=== PATIENT | female | born 1945 | race Caucasian/White ===

== ENCOUNTER 2018-04-17 17:44 | Inpatient (IN) | payer MEDICARE ==
--- NOTE | 2018-04-17 17:52 | ED ---
Abdominal Pain/Female - HPI Summary HPI Summary: A 72 y/o female brought in by [facility] presents was transferred from [place] to [facility] with a chief complaint of acute appendicitis on 04/17/18. Per EMS her RLQ abd pain started 36 hours [place]UTTER [place]. She also developed a fever of 100.6. She takes Lisinopril for HTN but denies HLD and DM. She takes prednisone for polymyalgia. She reports last eating the night of 04/16/18. She was given 10 mg morphine in the ambulance and reports no current pain, rating her pain as 0/10. - History of Current Complaint Stated Complaint: ABD PAIN FROM AUNDREA Hx Obtained From: Patient, EMS Onset/Duration: Sudden Onset, Lasting Days, Still Present Timing: Constant Severity Initially: Severe Severity Currently: Moderate Pain Intensity: 0 Pain Scale Used: 0-10 Numeric Location: Discrete At: RLQ Radiates: No Character: Sharp Aggravating Factor(s): Nothing Alleviating Factor(s): Nothing Associated Signs and Symptoms: Positive: Fever. Negative: Chest Pain, Back Pain Allergies/Adverse Reactions: Allergies Allergy/AdvReac Type Severity Reaction Status Date / Time Penicillins Allergy Unknown Verified 04/17/18 18:05 Reaction Details PMH/Surg Hx/FS Hx/Imm Hx Endocrine/Hematology History: Denies: Hx Diabetes Cardiovascular History: Reports: Hx Hypertension Musculoskeletal History: Reports: Other Musculoskeletal History - polymyalgia - Family History Known Family History: Negative: Cardiac Disease, Hypertension, Diabetes Review of Systems Positive: Fever Positive: Abdominal Pain All Other Systems Reviewed And Are Negative: Yes Re-Evaluation - Re-Evaluation First Eval Re-Evaluation Time: 18:10 Change: Unchanged Comment: Discussed plan with patient Abdominal Pain Fem Course/Dx - Course Course Of Treatment: A 72 y/o female brought in by [facility] presents was transferred from [place] to [facility] with a chief complaint of acute appendicitis on 04/17/18. Per EMS her RLQ abd pain started 36 hours CUTTER V GRO[place]. She also developed a fever of 100.6. She takes Lisinopril for HTN but denies HLD and DM. She takes prednisone for polymyalgia. She reports last eating the night of 04/16/18. She was given 10 mg morphine in the ambulance and reports no current pain, rating her pain as 0/10. I discussed my physical exam findings with and Dr. Villegas from surgery and he agrees to consult for this patient. At this point I gave the patient maintenance IV fluids and she is awaiting for the surgery consult. Patient is alert and oriented [address] Villegas from surgery assessed the patient and he is admitting the patient to his services for a possible appendectomy. - Diagnoses Provider Diagnoses: Acute appendicitis - Provider Notifications Discussed Care Of Patient With: Yusef Villegas Time Discussed With Above Provider: 18:00 Instructed by Provider To: MD Will See In ED - After discussing the case with Dr. Villegas he will see the patient in the ED. He accepted the patient for admission. Discharge - Sign-Out/Discharge Documenting (check all that apply): Patient Departure - admit - Discharge Plan Condition: Fair Disposition: ADMITTED TO [facility] - Billing Disposition and Condition Condition: FAIR Disposition: Admitted to [facility] - Attestation Statements Document Initiated by Scribe: Yes Documenting Scribe: Dwayne Conway Provider For Whom Scribe is Documenting (Include Credential): Noe South MD Scribe Attestation: Dwayne Byrd, scribed for Noe South MD on 04/18/18 at 1039. Scribe Documentation Reviewed: Yes Provider Attestation: The documentation as recorded by the Dwayne messina accurately reflects the service I personally performed and the decisions made by me, Noe South MD Status of Scribe Document: Viewed Attestations User Type: Provider with Scribe Provider Attestation: The documentation recorded by the scribe accurately reflects the service I personally performed and the decisions made by me.
[2018-04-17] MEDS ORDERED: NS 0.9% 1000 ML* 1,000 ML IV SCH (18:30)
[2018-04-17] MEDS ORDERED: Clindamycin 900 MG/D5W BAG(*) 900 MG/50 ML BAG IVPB ONE (19:23)
[2018-04-17] MEDS ORDERED: Famotidine IV* 10 MG/ML 2 ML (20 mg) ONE (19:27)
[2018-04-17] MEDS ORDERED: Bupivacaine 0.25% EPI 200,000* 30 ML SDV ONE (19:27)
[2018-04-17] MEDS ORDERED: Famotidine IV* 10 MG/ML 2 ML (20 mg) IV SLOW PU ONE (19:28)
[2018-04-17] MEDS ORDERED: Acetaminophen IV 1GM/100ML * 10 MG/ML VIAL IVPB ONE (19:29)
[2018-04-17] MEDS ORDERED: HYDROmorphone INJ1* 1 MG/ML SYRINGE IV PRN (19:29)
[2018-04-17] MEDS ORDERED: DiMENhydriNATE IV* 50 MG/ML VIAL IV PUSH PRN (19:29)
[2018-04-17] MEDS ORDERED: Naloxone* 0.4 MG/ML 1 ML VIAL IV PRN (19:29)
[2018-04-17] MEDS ORDERED: Midazolam* 1 MG/ML 5 ML VIAL (5 MG) ONE (19:38)
[2018-04-17] MEDS ORDERED: Gentamicin ADULT (*) 300 MG in NS 0.9% 100 ML* 100 ML IVPB ONE (20:00)
[2018-04-17] MEDS ORDERED: Ondansetron INJ* 2 MG/ML VIAL ONE (20:11)
[2018-04-17] MEDS ORDERED: EPHEDrine (Pressors)* 50 MG/ML VIAL ONE (20:11)
[2018-04-17] MEDS ORDERED: Succinylcholine* 20 MG/ML 10 ML VIAL ONE (20:11)
[2018-04-17] MEDS ORDERED: Ketorolac INJ* 30 MG/ML 1 ML VIAL ONE (20:11)
[2018-04-17] MEDS ORDERED: DiMENhydriNATE IV* 50 MG/ML VIAL ONE (20:11)
[2018-04-17] MEDS ORDERED: Dexamethasone IV* 4 MG/ML 1 ML (4 MG) ONE (20:11)
[2018-04-17] MEDS ORDERED: Propofol* 10 MG/ML 20 ML BTL ONE (20:11)
[2018-04-17] MEDS ORDERED: fentaNYL* 50 MCG/ML 2 ML VIAL (100 MCG VIAL) ONE (20:12)
[2018-04-17] MEDS ORDERED: Lidocaine 2% PF * 5 ML VIAL ONE (20:12)
[2018-04-17] MEDS ORDERED: HYDROcodone/ACETAMIN 5-325 MG* 1 TAB PO PRN (21:25)
[2018-04-17] MEDS ORDERED: HYDROmorphone INJ* 0.5 MG/0.5 ML SYRINGE IV PRN (21:25)
--- NOTE | 2018-04-17 21:25 | BRIEFOPN ---
Brief Operative Note - Surgery Procedures: Pre-OP Diagnoses: acute appendicitis Post-op Diagnosis: perforated appendicitis Procedure: Laparoscopic appendectomy, abdominal washout Surgeon: Bakari Asst: none Anethesia: LEXIE EBL: minimal IVF: 1Lcrystalloid Specimen: appendix cultures Drains: #7 RAMON
[2018-04-17] MEDS ORDERED: Heparin VIAL(*) 5000 UNITS/ML VIAL (FIVE THOUSAND) SUBCUT SCH (22:00)
[2018-04-18] MEDS: metroNIDAZOLE IV 500 MG/100ML* 500 MG/100 ML BAG IVPB SCH ×3 (00:08→16:36)
[2018-04-18] MEDS: Levofloxacin 500 MG IVPREMIX(* 500 MG/100 ML BAG IVPB SCH (01:33)
[2018-04-18] MEDS: Heparin VIAL(*) 5000 UNITS/ML VIAL (FIVE THOUSAND) SUBCUT SCH ×2 (08:59→16:37)
[2018-04-18] MEDS: Ondansetron INJ* 2 MG/ML VIAL IV PRN (10:49)
--- NOTE | 2018-04-18 12:23 | PN ---
Progress Note - Progress Note Date of Service: 04/18/18 SOAP: Subjective: Pt seen and examined. Feeling better today, but intermittent nausea. Objective: Temp Pulse Resp BP Pulse Ox 97.5 F 70 18 105/52 95 04/18/18 11:10 04/18/18 11:10 04/18/18 11:10 04/18/18 11:10 04/18/18 11:10 Intake & Output 04/17/18 04/18/18 04/18/18 22:59 06:59 14:59 Intake Total 1275 630 Output Total 0 250 Balance 1275 380 Weight 92 lb 92 lb a and o x3, nad lungs clear abdo: soft/ distended/ NT RAMON cloudy ext wnl gram stain; + cocci Assessment: POD 1 lap appy, peritonitis Plan: Ramon drainage abx full liquids for now- concern of likely ileus IVF SACMA to cover me until 04/22
--- NOTE | 2018-04-18 12:57 | OP ---
CC: Dwayne Driscoll MD * DATE OF OPERATION: 04/17/18 - ROOM #337 DATE OF : 45 SURGEON: Yusef Villegas MD DIMETHYLANILINE SULFATOR OPERATOR: None. ANESTHESIOLOGIST: Dr. Ureña. ANESTHESIA: General. PRE-OP DIAGNOSIS: Acute appendicitis. POST-OP DIAGNOSIS: Acute perforated appendicitis and peritonitis. OPERATIVE PROCEDURE: Laparoscopic appendectomy and abdominal washout. ESTIMATED BLOOD LOSS: Minimal. FLUIDS: 1 L crystalloid fluid given. SPECIMEN: 1. Appendix. 2. Peritoneal fluid for culture, aerobic and anaerobic. DRAINS: A #7 RAMON drain. DESCRIPTION OF PROCEDURE: The patient was identified in the preoperative area. I discussed the case with her and her family members as I reviewed the chart and agreed with the diagnosis of acute appendicitis from an outside institution. After looking at the CT scan and labs and examining the patient, I recommended laparoscopic appendectomy, although I did talk of the possible alternatives. We discussed the benefits and the patient wished to proceed with surgery. We also discussed the complications which include but are not limited to bleeding, infection, abscess formation, need for open procedure, need for additional procedures, hernia formation, small bowel obstruction postoperatively and prolonged hospitalization. The patient signed consent, was marked, taken to the operating room, and placed on the operating table in supine position. Preoperative antibiotics were given. Sequential compression devices were placed on bilateral lower extremities. General anesthesia was induced. The patient's abdomen was prepped and draped in the standard surgical fashion. A time-out was performed. Umbilical incision was made infraumbilically. This was deepened down to the anterior fascia which was incised and entered into the abdominal cavity and cloudy fluid was forthcoming. A 12-mm trocar was inserted and the abdomen was allowed to insufflate to a pressure of 15 mmHg. The patient tolerated the insufflation well. Camera was inserted and view of the abdomen showed significant amount of purulent- appearing fluid. Cultures were taken with swab sticks in the pelvis. This fluid was then suctioned off. Next, the omentum was slowly lifted up off of the small bowel and out of the pelvis and superiorly. Significant amount of small bowel loops were identified adhered to each other and these were taken down with blunt dissection and gentle traction. Pockets of purulent fluid were identified throughout this and we were able to suction out this fluid. At this point, we were able to get the small bowel out of the pelvis and viewed additional lateral aspect of the omentum, which was lifted off and we were able to identify the appendix. The appendix showed evidence of perforation, but it was mobile and not significantly adhered to anything other than the omentum. Window was made at the base of the appendix and a 45 mm watt BUDDY stapling device was fired across this. We cleared off the base of the appendix, which was intact tissue and fired a 45 mm alexander BUDDY stapling device across this site. Appendix was then placed in an endoscopic retrieval bag and placed it over the liver. Next, we suctioned out as much of purulent-appearing fluid as we could over the liver as well as on the left upper quadrant. We then copiously irrigated the abdomen with 6 L of fluid, suctioning this as we would go. Next, I ran the bowel from the terminal ileum almost throughout the entirety. We did this until we stopped seeing any exudative tissue, but it did require running it almost to the mid jejunum. Additional irrigation was performed over the lateral aspect of the cecum and also overlying the transverse mesocolon. Next, a #7 RAMON drain was brought in through the umbilical port site and placed in the appropriate fashion at the area of the appendiceal stump and extending it towards the pelvis. We then placed the patient into neutral positioning, allowed the omentum to fall back over the cecum. We then removed the appendix in its endoscopic retrieval bag through the umbilical port site, which was reapproximated at the fascial layer with an 0-Vicryl suture in a figure-of- eight fashion. The drain was sutured in with a 3-0 Surgipro suture and the additional 2 incisions were closed with 4-0 Monocryl subcuticular sutures followed by Steri-Strips and sterile dressing. The patient tolerated the procedure well, was woken up in the OR and transferred to the PACU in stable condition. [id number]/[facility] #: [id number] MEENAKSHI
[2018-04-18] MEDS: Acetaminophen TAB* 325 MG PO PRN (13:09)
[2018-04-19] MEDS: Heparin VIAL(*) 5000 UNITS/ML VIAL (FIVE THOUSAND) SUBCUT SCH ×3 (00:11→16:15)
[2018-04-19] MEDS: metroNIDAZOLE IV 500 MG/100ML* 500 MG/100 ML BAG IVPB SCH ×3 (00:13→16:15)
[2018-04-19] MEDS: Acetaminophen TAB* 325 MG PO PRN (00:17)
[2018-04-19] MEDS: Levofloxacin 500 MG IVPREMIX(* 500 MG/100 ML BAG IVPB SCH (01:21)
[2018-04-19 06:19] LABS: ABS Basophils 0 10^3/ul (0-0.2); ABS Eosinophils 0 10^3/ul (0-0.6); ABS Lymphocytes 0.6 10^3/ul (1.0-4.8); ABS Monocytes 0.6 10^3/ul (0-0.8); ABS Neutrophils 13.9 10^3/ul (1.5-7.7); ABS Nucleated RBC 0 10^3/ul; Eosinophil % 0 %; Hematocrit 32 % (35-47); Hemoglobin 10.9 g/dl (12.0-16.0); Lymphocyte % 3.7 %; Mean Corpuscular HGB Conc 34 g/dl (31-36); Mean Corpuscular Hemoglobin 30 pg (27-31); Mean Corpuscular Volume 90 fL (80-97); Mean Platelet Volume 9.7 fL (7.4-10.4); Nucleated Red Blood Cells % 0; Platelet Count 171 10^3/ul (150-450); Red Blood Count 3.58 10^6/ul (4.00-5.40); Red Cell Distribution Width 13 % (10.5-15); White Blood Count 15.1 10^3/ul (3.5-10.8)
[2018-04-19 06:36] LABS: EGFR Non-African American 71.5 (>60)
--- NOTE | 2018-04-19 11:18 | PN ---
Progress Note - Progress Note Date of Service: 04/19/18 Note: S: POD #2. On IV Levo/Flagyl. No BM or flatus. No N/V. Does not like the full liq diet; would like to try something more. Ambulating well. Min pain. Current Medications Acetaminophen (Tylenol Tab*) 650 mg PO Q4H PRN PRN Reason: Pain Or Temperature >101 F Last Admin: 04/19/18 00:17 Dose: 650 mg Hydrocodone Bitart/Acetaminophen ([place] 5-325 Tab*) 1 tab PO Q4H PRN PRN Reason: PAIN - MODERATE Heparin Sodium (Porcine) (Heparin Vial(*)) 5,000 units SUBCUT Q8H [facility] Last Admin: 04/19/18 07:27 Dose: 5,000 units Hydromorphone HCl (Dilaudid Inj*) 0.5 mg IV Q1H PRN PRN Reason: Pain - severe Sodium Chloride (Ns 0.9% 1000 Ml*) 1,000 mls @ 150 mls/hr IV PER RATE [facility] Last Admin: 04/17/18 18:33 Dose: 150 mls/hr Levofloxacin/Dextrose (Levaquin 500 Mg Ivpremix(*)) 500 mg in 100 mls @ 100 mls /hr IVPB Q24H [facility] Last Admin: 04/19/18 01:21 Dose: 100 mls/hr Lactated Ringer's (Lactated Ringers 1000 Ml Bag*) 1,000 mls @ 100 mls/hr IV PER RATE [facility] Last Admin: 04/19/18 00:14 Dose: 100 mls/hr Metronidazole/Sodium Chloride (Flagyl 500 Mg Ivpb*) 500 mg in 100 mls @ 100 mls /hr IVPB Q8H [facility] Last Admin: 04/19/18 07:27 Dose: 100 mls/hr Ondansetron HCl (Zofran Inj*) 4 mg IV Q4H PRN PRN Reason: NAUSEA/VOMITING Last Admin: 04/18/18 10:49 Dose: 4 mg O: Vital Signs - 8 hr 04/19/18 04/19/18 04/19/18 04:36 07:30 08:03 Temperature 97.8 F 98.1 F Pulse Rate 81 77 Respiratory 18 16 16 Rate Blood Pressure 118/62 122/73 (mmHg) O2 Sat by Pulse 97 98 Oximetry Intake and Output Last 24 Hours 04/17/18 04/18/18 04/19/18 04/20/18 06:59 06:59 06:59 06:59 Intake Total 1905 4141 350 Output Total 250 2120 400 Balance 1655 2020 -50 Weight 92 lb Intake: IV Fluids 1275 2581 ABX - FLAGYL 573 ABX - LEVOFLOXACIN 105 CLINDAMYCIN 900 MG 50 GENTAMYCIN 200MG 75 LR 1150 1903 IVPB 150 ABX - FLAGYL 100 Tylenol IV 50 Oral 480 1560 350 Output: RAMON #1 100 170 Urine 150 1950 400 Other: Estimated Void Small Estimated Blood Loss MINIMAL Comment Gen: appears well Heart: reg Lungs: clear Abd: softly distended; mildly tympanitic; BS quiet; nontender to palp; RAMON: light , sl cloudly serosang drainage Extr: no edema A/P: s/p lap appy for perf'd appendicitis w/ prob ileus; will try adv diet, though counseled pt to go slowly and emphasize hydration; cont IV abx; home when able
[2018-04-20] MEDS: Acetaminophen TAB* 325 MG PO PRN (00:28)
[2018-04-20] MEDS: metroNIDAZOLE IV 500 MG/100ML* 500 MG/100 ML BAG IVPB SCH ×4 (00:30→23:38)
[2018-04-20] MEDS: Heparin VIAL(*) 5000 UNITS/ML VIAL (FIVE THOUSAND) SUBCUT SCH ×4 (00:32→23:38)
[2018-04-20] MEDS: Levofloxacin 250 MG IVPREMX(*) 250 MG/50 ML BAG IVPB SCH (01:59)
--- NOTE | 2018-04-20 09:19 | PN ---
Progress Note - Progress Note Date of Service: 04/20/18 SOAP: Subjective: No appetite. + flatus, no BM. Pain controlled. No N/V. Objective: Vital Signs Temp 98.3 F 04/20/18 07:26 Pulse 87 04/20/18 07:26 Resp 18 04/20/18 07:53 BP 146/85 04/20/18 07:26 Pulse Ox 99 04/20/18 07:26 Gen: Mild discomfort. Abd: softly distended with +BS; incisions with dressings intact. RAMON with serous o/p. Mild to mod tenderness. Intake & Output 04/19/18 04/20/18 04/20/18 18:59 06:59 18:59 Intake Total 1420 1631 Output Total 700 1875 Balance 720 -244 Intake: IV Fluids 950 949 LR 950 949 IVPB 262 ABX - FLAGYL 210 ABX - LEVOFLOXACIN 52 Oral 470 420 Output: RAMON #1 50 75 Urine 650 1800 Other: # Bowel Movements 0 Active Medications Generic Name Dose Route Start Last Admin Trade Name Freq PRN Reason Stop Dose Admin Acetaminophen 650 mg 04/17/18 21:25 04/20/18 00:28 Tylenol Tab* PO 650 mg Q4H PRN Administration Pain Or Temperature >101 F Hydrocodone Bitart/Acetaminophen 1 tab 04/17/18 21:25 [place] 5-325 Tab* PO Q4H PRN PAIN - MODERATE Heparin Sodium (Porcine) 5,000 units 04/18/18 08:00 04/20/18 08:27 Heparin Vial(*) SUBCUT 5,000 units Q8H ZITA Administration Hydromorphone HCl 0.5 mg 04/17/18 21:25 Dilaudid Inj* IV Q1H PRN Pain - severe Lactated Ringer's 1,000 mls @ 100 mls/hr 04/17/18 22:00 04/20/18 03:02 Lactated Ringers 1000 Ml Bag* IV 100 mls/hr PER RATE ZITA Administration Metronidazole/Sodium Chloride 500 mg in 100 mls @ 100 mls/hr 04/18/18 00:00 04/20/18 08:27 Flagyl 500 Mg Ivpb* IVPB 100 mls/hr Q8H ZITA Administration Levofloxacin/Dextrose 250 mg in 50 mls @ 50 mls/hr 04/20/18 01:00 04/20/18 01 :59 Levaquin 250 Mg Ivpremx(*) IVPB 50 mls/hr Q24H ZITA Administration Ondansetron HCl 4 mg 04/17/18 21:25 04/18/18 10:49 Zofran Inj* IV 4 mg Q4H PRN Administration NAUSEA/VOMITING Assessment: POD#2 s/p lap appy for perf. Resolving ileus. Plan: Cont IV abx and RAMON. Slowly advance diet. Possible d/c home tomorrow on po abx.
[2018-04-21] MEDS: Levofloxacin 250 MG IVPREMX(*) 250 MG/50 ML BAG IVPB SCH (01:04)
[2018-04-21] MEDS: Ondansetron INJ* 2 MG/ML VIAL IV PRN (02:21)
[2018-04-21] MEDS: metroNIDAZOLE IV 500 MG/100ML* 500 MG/100 ML BAG IVPB SCH (08:11)
[2018-04-21] MEDS: Heparin VIAL(*) 5000 UNITS/ML VIAL (FIVE THOUSAND) SUBCUT SCH (08:11)
--- NOTE | 2018-04-21 09:19 | PN ---
Progress Note - Progress Note Date of Service: 04/21/18 SOAP: Subjective: Nausea but otherwise doing well. + flatus. Objective: Vital Signs Temp 98.4 F 04/21/18 07:15 Pulse 90 04/21/18 07:15 Resp 16 04/21/18 08:19 BP 123/66 04/21/18 07:15 Pulse Ox 98 04/21/18 07:15 Abd: soft; less distended; tender near RAMON (serous o/p) Intake & Output 04/20/18 04/21/18 04/21/18 18:59 06:59 18:59 Intake Total 1210 1942 100 Output Total 1770 1210 400 Balance -560 732 -300 Intake: IV Fluids 1090 1024 LR 1090 1024 IVPB 258 ABX - LEVOFLOXACIN 258 Oral 120 660 100 Output: RAMON #1 70 50 Urine 1700 1100 400 Emesis 60 Other: # Bowel Movements 0 Microbiology 04/17/18 20:32 Anaerobic Culture - Final Misc Source (See Comment) - Abdominal Bacteroides [place] Skin and Soft Tissue MRSA/MSSA (PCR - Final Mrsa Negative S.aureus Negative Gram Stain - Final Wound Culture - Final Escherichia Coli Normal Amita Assessment: s/p lap appy for perf. Nausea prob due to Flagyl. Plan: Will change to po abx. D/c RAMON. Possible d/c home later today vs. AM.
[2018-04-21] MEDS ORDERED: Amoxicillin/Clavulanate TAB* 875 MG PO SCH (10:00)
--- NOTE | 2018-04-21 15:17 | DCNOTE ---
Her nausea has improved off the Flagyl. She has had 2 BMs. She requires no pain medication. She has tolerated the Augmentin. She does not have a penicillin allergy but reports her mother told her she had hives when she was a child. Will d/c home on Augmentin for 7 days.
[2018-04-21 15:55] VITALS: BP 125/63
== END 2018-04-21 16:35 | disposition home or self-care (01) | DRG 340 ==
LOC: ED 17:44 → OR 19:02 → SSU 22:11
PROVIDERS: ADMIT Surgery; ATTEND Surgery
PROC: 0DTJ4ZZ Resection of Appendix, Percutaneous Endoscopic Approach (ICD-10-PCS; principal; 2018-04-17 18:15)
DX: K35.32 Acute appendicitis with perforation, localized peritonitis, and gangrene, without abscess (principal); I10 Essential (primary) hypertension; M35.3 Polymyalgia rheumatica; Z79.52 Long term (current) use of systemic steroids; Z79.899 Other long term (current) drug therapy; Z88.0 Allergy status to penicillin
CPT/HCPCS: 36415; 80048; 85025; 87070; 87073; 87076; 87077; 87186; 87205; 87640; 87641; 88304; 99284; A9270-GY; C1776; J0330; J1100; J1240; J1580; J1644; J1885; J1956; J2250; J2405; J2704; J3010; J3490